=== PATIENT | male | born 1975 | race Caucasian/White ===

== ENCOUNTER → 2024-10-11 | Outpatient (CLI) | payer OTHER | END | disposition home or self-care (01) | LOC: ORTHO 00:53 | PROVIDERS: ATTEND Orthopaedic Surgery | DX: M19.021 Primary osteoarthritis, right elbow (principal); M25.521 Pain in right elbow ==

== ENCOUNTER → 2025-07-27 | Outpatient (CLI) | payer OTHER | LOC: ORTHO 01:39 | PROVIDERS: ATTEND Orthopaedic Surgery | DX: M25.561 Pain in right knee (principal) ==